=== PATIENT | male | born 1980 | race Two or more races ===

== ENCOUNTER → 2017-08-05 | Outpatient (REF) | payer BC | LOC: M SMT 13:21 | DX: Z30.09 Encounter for other general counseling and advice on contraception (principal) | CPT/HCPCS: 88302 ==

== ENCOUNTER → 2017-10-14 | Outpatient (REF) | payer BC ==
[2017-10-14 10:07] LABS: SEMEN APPEARANCE OPAQUE (OPAQUE); SEMEN VISCOSITY LIQUID (LIQUID)
[2017-10-14 10:08] LABS: IMMMOTILE SPERM CENTRIFUGED ABSENT (ABSENT); IMMOTILE SPERM ABSENT (ABSENT); MOTILE SPERM ABSENT (ABSENT); MOTILE SPERM CENTRIFUGED ABSENT (ABSENT); SPERM ABNORMAL FORMS WBC'S NOTED; WBC CONCENTRATION <=1 M/ml (<=1 M/ml)
== END ==
LOC: M SMT 09:40
DX: Z98.52 Vasectomy status (principal)

== ENCOUNTER → 2017-12-20 | Outpatient (CLI) | payer BC | LOC: M RAD 13:02 | DX: N50.819 Testicular pain, unspecified (principal) | CPT/HCPCS: 76870 ==

== ENCOUNTER → 2018-03-20 | Outpatient (REF) | payer BC ==
[2018-03-20 18:39] LABS: APPEARANCE, URINE CLEAR (CLEAR); BACTERIA, URINE AUTO NEGATIVE (NEGATIVE); BILIRUBIN, URINE AUTO NEGATIVE (NEGATIVE); BLOOD, URINE BLOOD NEGATIVE (NEGATIVE); COLOR, URINE YELLOW (YELLOW); GLUCOSE, URINE (UA) AUTO NEGATIVE (NEGATIVE); KETONE, URINE AUTO NEGATIVE (NEGATIVE); LEUKOCYTE ESTERASE, URINE AUTO NEGATIVE (NEGATIVE); MUCUS, URINE SMALL (NEGATIVE); NITRITE, URINE AUTO NEGATIVE (NEGATIVE); PROTEIN, URINE AUTO NEGATIVE (NEGATIVE); RBC, URINE AUTO 0 /HPF (0-3); SPECIFIC GRAVITY URINE AUTO 1.026 (1.002-1.035); SQUAMOUS EPITHELIAL CELL UR AU 0 /HPF (0-6); UROBILINOGEN, URINE AUTO 0.2 mg/dL (0.0-2.0); WBC, URINE AUTO 0 /HPF (0-3)
== END ==
LOC: M SMT 17:08
DX: N50.819 Testicular pain, unspecified (principal)
CPT/HCPCS: 81001

== ENCOUNTER → 2019-06-10 | Outpatient (CLI) | payer BC ==
[2019-06-13 00:07] LABS: Lyme Disease IgG/IgM Antibodie <0.91 ISR (0.00-0.90); Lyme Disease IgM Ab Quantitati <0.80 index (0.00-0.79)
== END ==
LOC: M LAB 16:03
PROVIDERS: ATTEND Nurse Practitioner Family
DX: Z11.2 Encounter for screening for other bacterial diseases (principal); W57.XXXA Bitten or stung by nonvenomous insect and other nonvenomous arthropods, initial encounter

== ENCOUNTER 2020-01-25 20:37 | Emergency (ER) | payer BC ==
[2020-02-21 17:21] LABS: BLOOD UREA NITROGEN 18 MG/DL (7-18); CALCIUM LEVEL 8.9 MG/DL (8.5-10.1); CARBON DIOXIDE LEVEL 30 MEQ/L (21-32); CHLORIDE LEVEL 107 MEQ/L (98-107); CK-MB VALUE MASS < 1.0 NG/ML (<3.6); CPK CREATINE PHOSPHOKINASE 110 U/L (39-308); CREATININE FOR GFR 1.07 MG/DL (0.70-1.30); FREE T4 0.98 NG/DL (0.76-1.46); GLOMERULAR FILTRATION RATE > 60.0 (>60); GLUCOSE, FASTING 92 MG/DL (70-100); MB/CK RELATIVE INDEX 0.91 (< OR =4); POTASSIUM SERUM 3.8 MEQ/L (3.5-5.1); SODIUM LEVEL 143 MEQ/L (136-145); TROPONIN I < 0.02 NG/ML (< 0.10)
[2020-02-26 23:38] LABS: BASO # 0.1 10^3/uL (0.0-0.2); BASO % 0.7 % (0.0-1.0); EOS # 0.1 10^3/uL (0.0-0.5); EOS % 1.1 % (0.0-3.0); HEMATOCRIT 45.6 % (42.0-52.0); HEMOGLOBIN 15.5 g/dl (13.5-17.5); LYMPH # 1.9 10^3/uL (1.5-5.0); LYMPH % 21.4 % (24.0-44.0); MEAN CORPUSCULAR HEMOGLOBIN 28.6 pg (27.0-33.0); MEAN CORPUSCULAR VOLUME 84.1 fl (80.0-96.0); MONO # 0.9 10^3/uL (0.0-0.8); NEUTROPHILS # 5.8 10^3/uL (1.5-8.5); NEUTROPHILS % 65.5 % (36.0-66.0); PLATELET COUNT, AUTOMATED 267 10^3/uL (150-450); RED BLOOD COUNT 5.42 10^6/uL (4.30-6.10); WHITE BLOOD COUNT 8.8 10^3/uL (4.0-10.0)
--- NOTE | 2020-03-18 15:16 | ECGEPIP ---
SINUS RHYTHM NORMAL ECG NO PRIOR DUE TO DOWNTIME SEE SCANNED DOWNTIME REPORT MTDD
== END 2020-01-25 23:51 | disposition home or self-care (01) ==
LOC: M ED 20:37
DX: R20.2 Paresthesia of skin (principal); R07.89 Other chest pain; K44.9 Diaphragmatic hernia without obstruction or gangrene

== ENCOUNTER 2021-12-28 17:23 | Emergency (ER) | payer BC, OTHER ==
[~2021-12-28] VITALS: Ht 182.9 cm; Wt 86.4 kg
[2021-12-28 18:20] LABS: BASO # 0.1 10^3/uL (0.0-0.2); BASO % 0.8 % (0.0-1.0); EOS # 0.2 10^3/uL (0.0-0.5); HEMATOCRIT 47.3 % (42.0-52.0); HEMOGLOBIN 16.3 g/dl (13.5-17.5); LYMPH # 1.9 10^3/uL (1.5-5.0); LYMPH % 20.5 % (24.0-44.0); MEAN CORPUSCULAR HEMOGLOBIN 28.9 pg (27.0-33.0); MEAN CORPUSCULAR HGB CONC 34.5 g/dl (32.0-36.5); MEAN CORPUSCULAR VOLUME 83.9 fl (80.0-96.0); MONO # 0.8 10^3/uL (0.0-0.8); MONO % 8.9 % (2.0-8.0); NEUTROPHILS # 6.2 10^3/uL (1.5-8.5); NEUTROPHILS % 67.2 % (36.0-66.0); PLATELET COUNT, AUTOMATED 279 10^3/uL (150-450); RED BLOOD COUNT 5.64 10^6/uL (4.30-6.10); WHITE BLOOD COUNT 9.3 10^3/uL (4.0-10.0)
[2021-12-28 18:39] LABS: INR 0.96; PROTHROMBIN TIME 13.2 SECONDS (12.7-14.5)
[2021-12-28] MEDS ORDERED: METOPROLOL TART 50 MG TAB PO ONE ×2 (18:40→23:45)
[2021-12-28 18:47] LABS: CK-MB VALUE MASS 2.4 NG/ML (<3.6); MB/CK RELATIVE INDEX 0.86 (< OR =4)
[2021-12-28] MEDS: METOPROLOL 5 MG/5 ML VIAL IV SCH ×3 (18:48→19:42)
[2021-12-28 18:52] LABS: ALBUMIN 4.3 GM/DL (3.2-5.2); ALT/SGPT 34 U/L (12-78); BILIRUBIN,DIRECT < 0.1 MG/DL (0.0-0.2); BILIRUBIN,TOTAL 0.4 MG/DL (0.2-1.0); BLOOD UREA NITROGEN 21 MG/DL (7-18); CALCIUM LEVEL 9.1 MG/DL (8.5-10.1); CARBON DIOXIDE LEVEL 26 MEQ/L (21-32); CHLORIDE LEVEL 108 MEQ/L (98-107); CREATININE FOR GFR 0.99 MG/DL (0.70-1.30); FREE T4 0.81 NG/DL (0.76-1.46); GLOMERULAR FILTRATION RATE > 60.0 (>60); GLUCOSE, FASTING 129 MG/DL (70-100); LIPASE 163 U/L (73-393); NT-PRO BNP 57 PG/ML (<125); POTASSIUM SERUM 3.7 MEQ/L (3.5-5.1); SODIUM LEVEL 141 MEQ/L (136-145)
[2021-12-28 19:01] VITALS: BP 168/98
[2021-12-28 19:02] LABS: MAGNESIUM LEVEL 2.3 MG/DL (1.8-2.4)
[2021-12-28] MEDS ORDERED: FLECAINIDE 50MG TABLET PO ONE (20:15)
[2021-12-28 23:45] VITALS: BP 140/91
[2021-12-28] MEDS ORDERED: ENOXAPARIN 100MG/1ML SYRINGE (J1650 PER 10MG) SC ONE (23:45)
== END 2021-12-29 00:03 | disposition home or self-care (01) ==
LOC: M ED 17:23
DX: I48.0 Paroxysmal atrial fibrillation (principal); R94.31 Abnormal electrocardiogram [ECG] [EKG]; Z86.79 Personal history of other diseases of the circulatory system
CPT/HCPCS: 71045; 80048; 80076; 82550; 82553; 83690; 83735; 83880; 84439; 84443; 84484; 85025; 85610; 93005; 93041; 94760; 96374; 96376; 99285; J1650

== ENCOUNTER 2021-12-29 08:46 | Emergency (ER) | payer OTHER ==
[~2021-12-29] VITALS: Ht 182.9 cm; Wt 86.4 kg
[2021-12-29 09:26] VITALS: BP 118/82
== END 2021-12-29 09:41 | disposition home or self-care (01) ==
LOC: M ED 08:46
DX: I48.0 Paroxysmal atrial fibrillation (principal); Z86.79 Personal history of other diseases of the circulatory system

== ENCOUNTER → 2024-08-05 | Outpatient (CLI) | payer BC, OTHER | LOC: M RAD 14:58 | PROVIDERS: ATTEND Physician Assistant | DX: N50.82 Scrotal pain (principal) ==

== ENCOUNTER → 2025-06-07 | Outpatient (CLI) | payer BC, OTHER | LOC: M WUC 09:38 | PROVIDERS: ATTEND Physician Assistant | DX: S30.0XXA Contusion of lower back and pelvis, initial encounter (principal); X58.XXXA Exposure to other specified factors, initial encounter; Y92.9 Unspecified place or not applicable; Y93.9 Activity, unspecified; Y99.9 Unspecified external cause status ==